=== PATIENT | male | born 1965 | race Caucasian/White ===

== ENCOUNTER 2024-04-21 06:42 | Day surgery (SDC) | payer BC ==
[~2024-04-21] VITALS: Ht 172.7 cm; Wt 74.8 kg
[~2024-04-21 06:42] MED LIST: Bupivacaine HCl 0.25% 50 ML Vial ONE; Dexamethasone Sod Phos 10 MG/ML 1ML VIAL ONE; EPINEPhrine HCl 1 MG/ML 1ML Amp ONE; FentaNYL Citrate 50 MCG/ML 2 ML Injection ONE; Lactated Ringer's 1,000 ML IV ONE; Midazolam HCl 1MG / ML 2ML Vial ONE; Ondansetron HCl 2 MG / ML 2ML Vial ONE; Rocuronium Bromide 10 MG/ML 5ML Injection IV ONE; Sugammadex Sodium 200 MG/2ML SDV (100 MG/ML) ONE; Zestril30 MG PO; propofoL 40 ML IV ONE
[2024-04-21] MEDS ORDERED: OxyCODONE HCL 10 MG TABCR ONE (06:53)
[2024-04-21] MEDS ORDERED: Acetaminophen 500 MG Tab ONE (06:53)
[2024-04-21] MEDS ORDERED: Tranexamic Acid 100 ML IV ONE (06:53)
[2024-04-21] MEDS ORDERED: CeFAZolin Sodium 2,000 MG VIAL ONE (06:54)
[2024-04-21] MEDS ORDERED: NS 50 ML IV ONE (06:54)
[2024-04-21] MEDS ORDERED: Ropivacaine 0.5% HCl/Pf 123.125 MG,EPINEPHrine HCL 0.25 MG,Ketorolac Tromethamine 15 MG... INFIL SCH (07:00)
[2024-04-21] MEDS ORDERED: Tranexamic Acid 100 ML IV SCH (07:00)
[2024-04-21] MEDS ORDERED: Chlorhexidine Mouth Care 15 ML UDC MT SCH (07:00)
[2024-04-21] MEDS ORDERED: CeFAZolin Sodium 2,000 MG in NS 100 ML IV SCH (07:00)
[2024-04-21] MEDS ORDERED: OxyCODONE HCL 10 MG TABCR PO SCH (07:00)
[2024-04-21] MEDS ORDERED: Lactated Ringer's 1,000 ML IV ONE ×3 (07:02→09:13)
[2024-04-21] MEDS ORDERED: ZESTRIL40 M1 PO (07:05)
[2024-04-21] MEDS ORDERED: ZESTRIL40 MG PO (07:06)
--- NOTE | 2024-04-21 07:49 | NUR ---
04/21/24 0749 Lety Dias T/O DONE AT BEDSIDE WITH DR DORADO AT 0732 PRIOR TO START OF NERVE BLOCK. NERVE BLOCK STARTED AT 0736 AND ENDED AT 0740. PT PLACED ON 3 L O2 VIA N/C AND SPO2 AND HR MONITORED T/O. PT TOLERATED PROCEDURE WELL.
[2024-04-21] MEDS ORDERED: FentaNYL Citrate 50 MCG/ML 2 ML Injection ONE (08:24)
[2024-04-21] MEDS ORDERED: Ketorolac Tromethamine 30mg Vial ONE (08:41)
[2024-04-21 10:14] VITALS: BP 113/73
--- NOTE | 2024-04-21 10:15 | NUR ---
04/21/24 1015 MAU BE PT WAS PLACED ON O2 VIA FACE TENT AFTER 1-2 MINUTES OUT OF OR. DESAT, EXTRA ASSIST. CURRENTLY O2 100% ON 10L. WILL CUT TO 5L
--- NOTE | 2024-04-21 11:20 | NUR ---
04/21/24 1120 MAU BE THROAT A LITTLE SORE AND SHOULDER A BIT SORE IN FRONT (RIGHT SHOULDER) "NOT BAD". REFUSED PAIN PILL
== END 2024-04-21 11:15 | disposition home or self-care (01) ==
LOC: ORSCSDS 06:42
PROVIDERS: Orthopaedic Surgery
PROC: 0LS30ZZ Reposition Right Upper Arm Tendon, Open Approach (ICD-10-PCS; principal; 2024-04-21 08:00)
PROC: 0RRJ00Z Replacement of Right Shoulder Joint with Reverse Ball and Socket Synthetic Substitute, Open Approach (ICD-10-PCS; principal; 2024-04-21 08:00)
DX: M19.011 Primary osteoarthritis, right shoulder (principal); I10 Essential (primary) hypertension; Z79.899 Other long term (current) drug therapy
CPT/HCPCS: 73030; A9270; C1713; C1776; J0171; J0690; J0735; J1100; J1885; J2250; J2405; J2704; J2795; J3010; J7120